=== PATIENT | female | born 1955 | race Caucasian/White ===

== ENCOUNTER 2017-11-08 08:05 | Emergency (ER) | payer SELFPAY ==
[~2017-11-08] VITALS: Ht 154.9 cm; Wt 51.4 kg
[~2017-11-08 08:05] MED LIST: CIPR500T4 PO; TRAM50 PO; Z.0.NO CURRENT MEDS
[2017-11-08 08:09] VITALS: BP 126/61; PULSE 88; RESP 18; TEMP 97.7; O2SAT 100
--- NOTE | 2017-11-08 08:41 | PD ---
HPI Chief Complaint: Musculoskeletal Complaint Time Seen by Provider: 08:17 Travel History International Travel<30 days: No Contact w/Intl Traveler<30days: No Traveled to known affect area: No History of Present Illness HPI This 62-year-old female is complaining of low back pain. She has had back pain off and on for some time. She believes she might have scoliosis. She says she is very active and athletic. Her recently and she has had to do more physical labor than usual. Pain seems to be going down the left leg today though usually goes down the right leg. She has not noted numbness or weakness. There has not been any fever. There is no history of direct trauma. She has been taking Aleve which is not helping as much as it used to PFSH Past Medical History Gastrointestinal Disorders: Yes (CHRONIC CONTIPATION) Tetanus Vaccination: Unknown Influenza Vaccination: Yes ?: Not Menopausal: Yes Past Surgical History Section: Yes Oral Surgery: Yes (SALIVARY GLAND REMOVAL) Other Surgery: Yes (BREAST IMPLANTS) Social History Alcohol Use: No Tobacco Use: Yes (1PPD) Substance Use: No Allergies-Medications (Allergen,Severity, Reaction): Coded Allergies: No Known Allergies (Verified Adverse Reaction, Unknown, 11/08/17) Reported Meds & Prescriptions Reported Meds & Active Scripts Active No Active Prescriptions or Reported Medications Review of Systems General / Constitutional: No: Fever, Chills Eyes: No: Diploplia, Blurred Vision HENT: No: Headaches Cardiovascular: No: Chest Pain or Discomfort, Palpitations Respiratory: No: Cough, Shortness of Breath Gastrointestinal: No: Nausea, Vomiting Genitourinary: No: Urgency, Frequency Musculoskeletal: Positive: Myalgias, Pain Skin: No Rash Neurologic: No: Weakness, Dizziness Hematologic/Lymphatic: No: Easy Bruising Physical Exam Narrative GENERAL: [-] SKIN: Focused skin assessment warm/dry. HEAD: Atraumatic. Normocephalic. EYES: Pupils equal and round. No scleral icterus. No injection or drainage. ENT: No nasal bleeding or discharge. Mucous membranes pink and moist. NECK: Trachea midline. No JVD. CARDIOVASCULAR: Regular rate and rhythm. No murmur appreciated. RESPIRATORY: No accessory muscle use. Clear to auscultation. Breath sounds equal bilaterally. GASTROINTESTINAL: Abdomen soft, non-tender, nondistended. Hepatic and splenic margins not palpable. MUSCULOSKELETAL: No obvious deformities. No clubbing. No cyanosis. No edema. There is some tenderness in the lower back. She is able to straight leg raise to 30 bilaterally. There is equal strength in plantar and dorsiflexion. Sensation of the legs is symmetric. There are normal patellar reflexes NEUROLOGICAL: Awake and alert. No obvious cranial nerve deficits. Motor grossly within normal limits. Normal speech. PSYCHIATRIC: Appropriate mood and affect; insight and judgment normal. Data Data Last Documented VS Vital Signs Date Time Temp Pulse Resp B/P (MAP) Pulse Ox O2 Delivery O2 Flow Rate FiO2 11/08/17 08:09 97.7 88 18 126/61 (82) 100 Orders Orders Spine, Lumbar Comp W/Obliq (11/08/17 08:31) MDM Medical Decision Making Medical Screen Exam Complete: Yes Emergency Medical Condition: Yes Medical Record Reviewed: Yes Differential Diagnosis Differential includes exacerbation of back pain, lumbar strain, HNP Narrative Course X-ray of the lumbar spine shows levoscoliosis with multilevel degenerative changes. There is grade 1 spondylolisthesis of L5 on S1. Patient is complaining of ongoing pain. I will prescribe Mobic and Flexeril for her to use at home. Diagnosis Primary Impression: Acute exacerbation of chronic low back pain Scripts Cyclobenzaprine (Flexeril) 10 Mg Tab 10 MG PO TID for Muscle Spasm, #30 TAB 0 Refills Prov: Silvino Ibanez MD 11/08/17 Meloxicam (Mobic) 7.5 Mg Tab 7.5 MG PO DAILY for Pain for 20 Days, #20 TAB 0 Refills Prov: Silvino Ibanez MD 11/08/17 Disposition: 01 DISCHARGE HOME Condition: Stable Silvino Ibanez MD Nov 08, 2017 08:41
--- NOTE | 2017-11-08 09:08 | RADRPT ---
EXAM DATE/TIME: 11/08/2017 08:38 [facility] COMPARISON: No previous studies available for comparison. INDICATIONS : Low back pain with no recent injury. MEDICAL HISTORY : Scoliosis. Smoker. SURGICAL HISTORY : section. Breast augmentation. ENCOUNTER: Initial ACUITY: 2 days PAIN SCORE: 8/10 LOCATION: lumbar spine FINDINGS: There are five non-rib bearing vertebral bodies. No compression deformity. Levoscoliosis. Advanced mu ltilevel degenerative changes greatest at L1-L2 3 levels. Minimal anterolisthesis L5 on S1. The disc spaces are maintained. The posterior elements are intact without evidence of spondylolysis. The pe dicles are intact. Bony mineralization is normal. No fracture is identified. CONCLUSION: 1. Levoscoliosis with multilevel degenerative changes. 2. Grade 1 spondylolisthesis L5 on S1 Conrado Diaz MD on November 08, 2017 at 9:05 Board Certified Radiologist. This report was verified electronically.
[2017-11-08] MEDS ORDERED: MOBI7.5T PO (09:22)
[2017-11-08] MEDS ORDERED: CYCL10TA PO (09:22)
== END 2017-11-08 10:10 | disposition home or self-care (01) ==
LOC: PHED 08:05
DX: M54.5 Low back pain (principal); G89.29 Other chronic pain; F17.210 Nicotine dependence, cigarettes, uncomplicated
CPT/HCPCS: 72110; 99283